=== PATIENT | female | born 1985 | race African-American/Black ===

== ENCOUNTER 2020-01-08 13:45 | Emergency (ER) | payer OTHER ==
[~2020-01-08] VITALS: Ht 167.6 cm; Wt 98.0 kg
--- NOTE | 2020-01-08 14:51 | PHYS DOC ---
Past History Past Medical History: Hypertension (TERRIE LEVINE APRN) Past Surgical History: Tubal ligation (TERRIE LEVINE APRN) Alcohol Use: None (TERRIE LEVINE APRN) Adult General Chief Complaint Chief Complaint: MULTIPLE COMPLAINTS [facility] HPI Patient is a 34 year old female who presents with concerns of having the COVID- 19 virus, patient states that last Saturday family member that lives in their house had tested positive for the COVID-19 virus. Patient denies any symptoms related to the COVID-19 virus, denies fever chills, headache, sore throat, fatigue, nasal congestion, body aches, loss of taste, loss of smell, diarrhea, nausea, vomiting, cough, congestion, or runny nose. Patient states her main concern is she wants tested today because of family member living in her house had COVID-19 virus. Patient also states that she has not seen her primary care physician in some time and is out of her hypertension medication losartan 25 mg daily and also is out of her GERD medicine Protonix 20 mg daily and wishes to have these medications refilled. (TERRIE LEVINE APRN) Review of Systems Review of Systems Constitutional: Denies fever or chills [] Eyes: Denies change in visual acuity, redness, or eye pain [] HENT: Denies nasal congestion or sore throat [] Respiratory: Denies cough or shortness of breath [] Cardiovascular: No additional information not addressed in HPI [] GI: Denies abdominal pain, nausea, vomiting, bloody stools or diarrhea [] : Denies dysuria or hematuria [] Musculoskeletal: Denies back pain or joint pain [] Integument: Denies rash or skin lesions [] Neurologic: Denies headache, focal weakness or sensory changes [] All other systems were reviewed and found to be within normal limits, except as documented in this note. (TERRIE LEVINE APRN) Family History Family History Patient reports having a family history of hypertension, GERD. (TERRIE LEVINE APRN) Current Medications Current Medications Patient reports 25 mg losartan daily, 20 mg Protonix daily. (TERRIE LEVINE APRN) Allergies Allergies Allergies Coded Allergies Type Severity Reaction Last Updated Verified No Known Drug Allergies 01/08/20 No (TERRIE LEVINE APRN) Physical Exam Physical Exam Constitutional: Well developed, well nourished, no acute distress, non-toxic appearance. HENT: Normocephalic, atraumatic, bilateral external ears normal, oropharynx moist, no oral exudates, nose normal. Eyes: PERRLA, EOMI, conjunctiva normal, no discharge. Neck: Normal range of motion, no tenderness, supple, no stridor. Cardiovascular:Heart rate regular rhythm, no murmur Lungs & Thorax: Bilateral breath sounds clear to auscultation Abdomen: Bowel sounds normal, soft, no tenderness, no masses, no pulsatile masses. Skin: Warm, dry, no erythema, no rash. Back: No tenderness, no CVA tenderness. Extremities: No tenderness, no cyanosis, no clubbing, ROM intact, no edema. Neurologic: Alert and oriented X 3, normal motor function, normal sensory function, no focal deficits noted. Psychologic: Affect normal, judgement normal, mood normal. (TERRIE LEVINE APRN) Current Patient Data Vital Signs Vital Signs Date Time Temp Pulse Resp B/P (MAP) Pulse Ox O2 Delivery O2 Flow Rate FiO2 01/08/20 14:26 99.1 89 16 100 Lab Results Pending COVID-19 test. (TERRIE LEVINE APRN) EKG EKG [] (TERRIE LEVINE APRN) Radiology/Procedures Radiology/Procedures [] (TERRIE LEVINE APRN) Course & Med Decision Making Course & Med Decision Making Pertinent Labs and Imaging studies reviewed. (See chart for details) 34-year-old female presents to the emergency department with concerns of having the COVID-19 virus, patient states family member has tested positive last Saturday. Patient denies any symptoms, wishes to be tested today. Because a family member living in the home with tested positive will test for COVID-19 today. Patient will also be given a 1 month refill prescription for losartan 25 mg daily and Protonix 20 mg p.o. daily. Discussed with patient need to follow- up with primary care physician for further prescriptions for healthcare problems, discussed COVID-19 instructions, patient gave verbal understanding of discharge home instructions and return to ER concerns, had no further questions or concerns, patient discharged to home without incident. (TERRIE LEVINE APRN) Dragon Disclaimer Dragon Disclaimer This electronic medical record was generated, in whole or in part, using a voice recognition dictation system. (TERRIE LEVINE APRN) Departure Departure: Impression: Primary Impression: COVID-19 virus test result unknown Additional Impressions: Educated about COVID-19 virus infection Exposure to COVID-19 virus HTN (hypertension) Medication refill GERD (gastroesophageal reflux disease) Disposition: 01 DC HOME SELF CARE/HOMELESS Condition: GOOD Referrals: PCPMONICA (PCP) Patient Instructions: Medication Refill, Emergency Department Additional Instructions: You have been tested for or diagnosed with COVID-19. It is an infection caused by a new type of coronavirus. COVID-19 will cause cold-like or mild flu symptoms in most. It can cause more severe symptoms like problems breathing in some. There is no treatment for COVID-19. The body will clear the infection over time. Self-care will help to ease discomfort. Steps to Take: Self-Care Rest as needed. Healthy habits may help you feel better. Steps include: Choose healthy foods including fruits and vegetables. Drink water throughout the day. Get plenty of sleep each night. If you smoke, try to quit. It may ease breathing. Avoid alcohol. Keep Others Healthy The virus can spread to others. Droplets are released every time you sneeze or cough. The droplets can get into the mouth, nose, or eyes of people near you and lead to infection. To lower the chances of spreading COVID-19 to others: Stay at home until your doctor has said it is safe to leave. If you tested positive this will mean staying isolated until both of the following are true: At least 7 days have passed since the start of illness. You are free of fever for at least 72 hours without the use of medicine. During this time: - Avoid public areas, events, or transportation. Do not return to work or school until your doctor has said it is safe to do so. - Call ahead if you need to go to a medical center. Let them know you may have COVID-19. It will help them guide you where to go. They may also ask you to wear a facemask when you come to the office. - If you call for emergency medical services, let them know you may have COVID- 19. While at home: - Try to avoid close contact with others. Stay about 6 feet away. - If possible, spend most of your time in a separate room from others. - Use a face mask if you will be in close contact with others such as sharing a room or vehicle. - Have someone wipe down common surfaces in the home. Use household voicer every day on areas like doorknobs, counters, or sinks. - Cough or sneeze into a tissue. Throw the tissue away right after use. If a tissue is not available, cough or sneeze into your elbow. - Wash your hands often. Wash them after sneezing or coughing. Use soap and water and wash for at least 20 seconds. Alcohol based hand steam cleaner can be used if soap and water is not available. - Do not prepare food for others. Avoid sharing personal items like forks, spoons, or toothbrushes. - Avoid close contact with pets while you are sick. There is no evidence of the virus passing to pets. This is a safety step until more is known about this virus. Isolation can be frustrating. Social interaction can help. Keep in touch with friends and family through phone and tech options. You can still interact with others in your home, just keep a safe distance of about 6 feet. Follow-up: Your doctors office will check in with you to see if there are any changes in your health. You may be asked to keep track of symptoms to share with them. They will also let you know when you are clear to be in public again. Problems to Look Out For: Contact your doctor if your recovery is not going as you expect. Get emergency care if you have problems such as: - Trouble breathing - Nonstop chest pain or pressure - Changes in awareness, confusion, or problems waking - Lips or face have bluish color - Worsening of symptoms If you think you have an emergency, call for emergency medical services right away. As taken from [employer] You have been given a prescription for losartan 20 mg daily and Protonix 20 mg daily, please follow-up with your primary care physician for further refills, take prescribed medications as directed, return to the emergency department for further concerns. Scripts Pantoprazole Sodium (PROTONIX) 20 Mg Tablet. 1 TAB PO DAILY for GASTRIC REFLUX, #30 TAB 0 Refills Prov: TERRIE LEVINE APRN 01/08/20 Losartan Potassium (COZAAR ) 25 Mg Tablet 25 MG PO DAILY for HYPERTENSION, #30 TAB 0 Refills Prov: TERRIE LEVINE APRN 01/08/20 Problem Qualifiers Additional Impressions: HTN (hypertension) Hypertension type: unspecified Qualified Codes: I10 - Essential (primary) hypertension GERD (gastroesophageal reflux disease) Esophagitis presence: without esophagitis Qualified Codes: K21.9 - Gastro- esophageal reflux disease without esophagitis TERRIE LEVINE APRN Jan 08, 2020 14:51 PRATIK VARGAS MD Jan 09, 2020 06:13
[2020-01-08] MEDS ORDERED: LOSA25TA PO (15:32)
[2020-01-08] MEDS ORDERED: PANT20TA58 PO (15:35)
--- NOTE | 2020-01-11 12:24 | NUR ---
IP: attempt to notify patient of COVID result, unable to leave call back message. Will send letter.
== END 2020-01-08 16:14 | disposition home or self-care (01) ==
LOC: ER 13:45
DX: Z20.828 Contact with and (suspected) exposure to other viral communicable diseases (principal); I10 Essential (primary) hypertension; Z76.0 Encounter for issue of repeat prescription; K21.9 Gastro-esophageal reflux disease without esophagitis; Z98.51 Tubal ligation status
CPT/HCPCS: 99283; C9803; U0003

== ENCOUNTER 2020-05-09 21:49 | Emergency (ER) | payer OTHER ==
[~2020-05-09] VITALS: Ht 167.6 cm; Wt 104.6 kg
[~2020-05-09 21:49] MED LIST: LOSA25TA PO; PANT20TA58 PO
[2020-05-09] MEDS ORDERED: IBUPROFEN 800 MG TABLET. PO ONE ×2 (22:38→23:00)
[2020-05-09] MEDS ORDERED: CYCL5TAB PO (23:42)
--- NOTE | 2020-05-09 23:42 | PHYS DOC ---
Past History Past Medical History: Hypertension Past Surgical History: Tubal ligation Alcohol Use: None Adult General Chief Complaint Chief Complaint: BACK PAIN - NO INJURY HPI HPI Patient is a 34-year-old female who presents with muscle spasms. States she has had muscle spasms in her low back for years, that come and go and earlier in the evening started having some muscle spasms in her low back, bilaterally. States that does not really hurt it just really tight like a charley horse. States used to take muscle relaxer for but did not have any. Denies any recent traumas, travel, illnesses, fevers. Denies any numbness/weakness/tingling. States he is making urine and stool normally. Review of Systems Review of Systems Review of systems otherwise unremarkable except for noted in HPI. Current Medications Current Medications Current Medications Medications (Trade) Dose Ordered Sig/Lily Start Time Stop Time Status Last Admin Dose Admin Ibuprofen (Motrin) 800 mg STK-MED ONCE 05/09/20 22:38 05/09/20 22:39 DC Allergies Allergies Allergies Coded Allergies Type Severity Reaction Last Updated Verified No Known Drug Allergies 01/08/20 No Physical Exam Physical Exam Constitutional: Well developed, well nourished, no acute distress, non-toxic appearance. [] Cardiovascular:Heart rate regular rhythm, no murmur [] Lungs & Thorax: Bilateral breath sounds clear to auscultation [] Skin: Warm, dry, no erythema, no rash. [] Back: Lumbar paraspinal muscle tenderness and tightness Extremities: No tenderness, no cyanosis, no clubbing, ROM intact, no edema. [] Neurologic: Alert and oriented X 3, normal motor function, normal sensory funct ion, no focal deficits noted. [] Psychologic: Affect normal, judgement normal, mood normal. [] Current Patient Data Vital Signs Vital Signs Date Time Temp Pulse Resp B/P (MAP) Pulse Ox O2 Delivery O2 Flow Rate FiO2 05/09/20 21:49 97.6 96 18 148/85 (106) 96 Room Air EKG EKG [] Radiology/Procedures Radiology/Procedures [] Heart Score Risk Factors: Risk Factors: DM, Current or recent (<one month) smoker, HTN, HLP, family history of CAD, obesity. Risk Scores: Risk Factors: DM, Current or recent (<one month) smoker, HTN, HLP, family history of CAD, obesity. Course & Med Decision Making Course & Med Decision Making Patient is a pleasant 34-year-old female presents with muscle spasms Vital signs not concerning. Physical exam noted above. No focal neurologic deficits appreciated on exam. Discussed all findings with patient recommended short-term muscle relaxer therapy and follow-up with primary care physician. Gave strict return precautions to the ED. Patient grateful, verbalized understanding and agreed with plan of discharge [] Dragon Disclaimer Dragon Disclaimer This electronic medical record was generated, in whole or in part, using a voice recognition dictation system. Departure Departure: Impression: Primary Impression: Muscle spasm Disposition: DC HOME SELF CARE/HOMELESS Condition: GOOD Referrals: PCP,NO (PCP) Patient Instructions: Muscle Cramps Additional Instructions: Please read the attached information. Please begin a Tylenol, ibuprofen and ice therapy at home along with your muscle relaxer as prescribed. Please follow-up with your primary care physician as soon as you can to set up a follow-up visit. Please return to the ED with any new or concerning symptoms. Scripts Cyclobenzaprine Hcl (CYCLOBENZAPRINE HCL) 5 Mg Tablet 1 TAB PO BID for spasm for 5 Days, #10 TAB Prov: VLADISLAV ESPINO MD 05/09/20 VLADISLAV ESPINO MD May 09, 2020 23:42
[2020-05-10] VITALS: BP 135/78
== END 2020-05-10 | disposition home or self-care (01) ==
LOC: ER 21:49
DX: M62.830 Muscle spasm of back (principal); I10 Essential (primary) hypertension; Z98.51 Tubal ligation status
CPT/HCPCS: 99283

== ENCOUNTER 2020-06-22 21:12 | Emergency (ER) | payer OTHER ==
[~2020-06-22] VITALS: Ht 167.6 cm; Wt 104.6 kg
[~2020-06-22 21:12] MED LIST changes: +CYCL5TAB PO
[2020-06-22 21:22] VITALS: BP 138/87
--- NOTE | 2020-06-22 21:43 | PHYS DOC ---
Past History Past Medical History: Hypertension Past Surgical History: Tubal ligation Alcohol Use: Occasionally General Adult EDM: Chief Complaint: ALLERGIES HPI: HPI: Mei is a 34-year-old prediabetic hypertensive female who presents to the emergency room with a 2-day history of sinus pressure, runny nose, and a headache. She states that she moved here to the [facility] 3 months ago from [place], [place]. She has not established care with a primary care physician here yet. Mei says that every spring she gets a sinus infection. In the past, her physician placed her on Zyrtec and this did help. Currently she says her pain is 8 out of 10 constant, worse in the morning, and describes it as a steady pressure. She has tried "[place]", this did not help. Furthermore, the patient states that she has had a small amount of blood come out when she blows her nose. She also states that she has popping in her ears bilaterally. She denies any systemic symptoms such as fevers, body aches, and chills. Review of Systems: Review of Systems: Constitutional: Denies fever or chills Eyes: Denies redness or eye pain HENT: Reports nasal congestion, sinus pain, bilateral "ear popping". Respiratory: Denies cough or shortness of breath Cardiovascular: Denies chest pain or palpitations GI: Denies abdominal pain, nausea, or vomiting : Denies dysuria or hematuria Musculoskeletal: Denies back pain or joint pain Integument: Denies rash or skin lesions Neurologic: Denies focal weakness or sensory changes; reports headache Complete systems were reviewed and found to be within normal limits, except as documented in this note. Allergies: Allergies: Allergies Coded Allergies Type Severity Reaction Last Updated Verified No Known Drug Allergies 01/08/20 No Physical Exam: PE: Constitutional: Well developed, well nourished, no acute distress, non-toxic appearance HENT: Normocephalic, atraumatic, tenderness to palpation of ethmoid and frontal bone sinuses, bilateral nasal turbinate inflammation and erythema. Eyes: PERRL, EOMI, conjunctiva normal, no discharge Neck: Normal range of motion, no tenderness, supple Lungs & Thorax: No respiratory distress, equal chest rise and fall Abdomen: Soft, no tenderness Skin: Warm, dry, no erythema, no rash Back: No tenderness, no CVA tenderness Extremities: No tenderness, ROM intact, no edema Neurologic: Alert and oriented X 3, normal motor function, normal sensory function, no focal deficits noted Psychologic: Affect normal, judgment normal Current Patient Data: Vital Signs: Vital Signs Date Time Temp Pulse Resp B/P (MAP) Pulse Ox O2 Delivery O2 Flow Rate FiO2 06/22/20 21:22 96.3 89 18 138/87 (104) 98 Room Air EKG: EKG: [] Radiology/Procedures: Radiology/Procedures: [] Heart Score: C/O Chest Pain: N/A Course & Med Decision Making: Course & Med Decision Making Mei is a 34-year-old patient who presents with 2 days of sinus pressure, headache, and "ear popping". She states that she has seasonal allergies. 3 months ago she moved to the [facility] from [facility]. She has not yet established care with a PCP. In the past, her physician in [place] prescribed her Zyrtec, which was effective. On exam, her nasal turbinates are swollen and erythematous bilaterally. She also has tenderness to her ethmoid and frontal bone sinuses. She denies any systemic symptoms. I think her symptoms are most likely due to seasonal allergies, and with her physical exam I do not think imaging is needed at this time. The patient inquired about antibiotics, and the risks and benefits of prescribing them were discussed with her. I explained to her that her symptoms were likely not bacterial in origin, and that antibiotics are generally not prescribed before symptoms are present for at least 10 days. The patient was given 1 dose of dexamethasone in the emergency room, and will be given a prescription for a prednisone taper. Furthermore, she will be prescribed Zyrtec, and given a referral to a primary care physician in the area. Patient stable for discharge with outpatient follow-up with PCP. Discussed findings and plan with patient, who acknowledges understanding and agreement. Daniel Disclaimer: Daniel Disclaimer: This electronic medical record was generated, in whole or in part, using a voice recognition dictation system. Departure Departure: Impression: Primary Impression: Allergic sinusitis Disposition: 01 DC HOME SELF CARE/HOMELESS Condition: STABLE Referrals: PCP,NO (PCP) Patient Instructions: Allergies, Generic, Sinusitis, [id number] Additional Instructions: Call Dr. Leilani Lacey (ENT) for further evaluation and treatment Address: [address] [facility] [address], [place] [address] Use humidifier especially at night when sleeping to help with your sinus issues Scripts Prednisone (PREDNISONE) 20 Mg Tablet 2 TAB PO DAILY for Allergies, #8 TAB Start this prescription tomorrow, 06/23/20. Prov: TERRIE ALEGRIA DO 06/22/20 Cetirizine Hcl (ZYRTEC) 10 Mg Tablet 1 TAB PO DAILY for Allergies, #30 TAB Prov: TERRIE ALEGRIA DO 06/22/20 TERRIE ALEGRIA DO Jun 22, 2020 21:43
[2020-06-22] MEDS ORDERED: CETI10TA74 PO (21:52)
[2020-06-22] MEDS ORDERED: PRED20TA PO (21:52)
[2020-06-22] MEDS ORDERED: DEXAMETHASONE 4 MG TABLET PO ONE (22:00)
== END 2020-06-22 21:55 | disposition home or self-care (01) ==
LOC: ER 21:12
DX: J30.9 Allergic rhinitis, unspecified (principal); I10 Essential (primary) hypertension
CPT/HCPCS: 99283; J8540